=== PATIENT | female | born 1960 | race Caucasian/White ===

== ENCOUNTER 2023-11-22 07:14 | Outpatient (CLI) | payer OTHER | END 2023-11-22 07:22 | disposition home or self-care (01) | LOC: NUCLEAR 07:14 | PROVIDERS: ATTEND Specialist | DX: I11.9 Hypertensive heart disease without heart failure (principal) | CPT/HCPCS: 78452; 93017; A9500 ==

== ENCOUNTER 2024-01-26 07:49 | Outpatient (CLI) | payer OTHER | END 2024-01-26 07:51 | disposition home or self-care (01) | LOC: SONOGRAMA 07:49 | PROVIDERS: ATTEND Pathology Anatomic Pathology & Clinical Pathology | DX: D34 Benign neoplasm of thyroid gland (principal); E07.89 Other specified disorders of thyroid; E04.2 Nontoxic multinodular goiter ==